=== PATIENT | female | born 1995 ===

== ENCOUNTER 2018-01-03 13:21 | Emergency (ER) | payer OTHER ==
[2018-01-03 13:50] VITALS: BP 113/74; PULSE 75; RESP 18; TEMP 98; O2SAT 99
--- NOTE | 2018-01-03 14:46 | ED PDOC ---
HPI: Skin/Bite Injury Time Seen by Provider: 01/03/18 14:08 Chief Complaint (Nursing): Abnormal Skin Integrity Chief Complaint (Provider): painful lip piercing History Per: Patient Onset/Duration Of Symptoms: Persistent (xfew months), Worse Since (2 days ago) Current Symptoms Are (Timing): Still Present Additional Complaint(s): 22 year old female arrives to ED with a complaint of irritation to her left lower lip piercing for the past few months. 2 days ago, she noted swelling to the affected area. Patient states she tired several times to remove piercing herself but has not been able to. Denies any active drainage, fever or chills. PMD: None Past Medical History Reviewed: Historical Data, Nursing Documentation, Vital Signs Vital Signs: Last Vital Signs Temp 98 F 01/03/18 13:49 Pulse 75 01/03/18 13:49 Resp 18 01/03/18 13:49 BP 113/74 01/03/18 13:49 Pulse Ox 99 01/03/18 13:49 - Medical History PMH: No Chronic Diseases - Surgical History Surgical History: No Surg Hx - Family History Family History: States: No Known Family Hx - Living Arrangements Living Arrangements: With Family - Social History Current smoker - smoking cessation education provided: Yes Alcohol: Occasional Drugs: Denies - Immunization History Hx Tetanus Toxoid Vaccination: Yes - Allergies Allergies/Adverse Reactions: Allergies Allergy/AdvReac Type Severity Reaction Status Date / Time No Known Allergies Allergy Verified 01/03/18 13:49 Review of Systems ROS Statement: Except As Marked, All Systems Reviewed And Found Negative Constitutional: Negative for: Fever, Chills ENT: Positive for: Other (painful piercing to lower lip) Physical Exam - Reviewed Nursing Documentation Reviewed: Yes Vital Signs Reviewed: Yes - Physical Exam Appears: Positive for: Well, Non-toxic, No Acute Distress Skin: Positive for: Normal Color. Negative for: Rash Eye Exam: Positive for: Normal appearance ENT: Positive for: Other (piercing noted to left lower lip noted with (-) signs of infection or active bleeding) Neck: Positive for: Normal Extremity: Positive for: Normal ROM Neurologic/Psych: Positive for: Alert, Oriented, Gait (steady) - Laboratory Results Urine POC: Negative - ECG O2 Sat by Pulse Oximetry: 99 (RA) Pulse Ox Interpretation: Normal Medical Decision Making Medical Decision Making: Initial Impression: Painful piercing to lower lip x several months Initial Plan: * Foreign body removal - see procedure note Patient advised to ice and elevate affected area, take Motrin for pain as needed and follow-up with primary doctor. Scribe Attestation: Documented by Sugar Alvarado, acting as a scribe for Alyssa Torres PA-C. Provider Scribe Attestation: All medical record entries made by the Scribe were at my direction and personally dictated by me. I have reviewed the chart and agree that the record accurately reflects my personal performance of the history, physical exam, medical decision making, and the department course for this patient. I have also personally directed, reviewed, and agree with the discharge instructions and disposition. Disposition - Clinical Impression Clinical Impression: Foreign body (FB) in soft tissue - Patient ED Disposition Is Patient to be Admitted: No Counseled Patient/Family Regarding: Diagnosis, Need For Followup - Disposition Referrals: [facility] [Outside] Disposition: Routine/Home Disposition Time: 15:19 Condition: STABLE Additional Instructions: Ice affected area to reduce swelling. Motrin as needed for pain. Follow up as needed with clinic or primary care doctor. Instructions: Foreign Body in Skin Forms: [employer] (Nepali), [facility] ED School/Work Excuse PROCEDURES - Foreign Body Removal Consent Obtained: verbal consent Site: other (left lower lip) Description of foreign body: other (lip piercing) Sedation/Analgesia: none, other (3 cc 1% lidocaine injected locally) Technique: removal with forceps Confirmed by:: direct visualization Complications:: None Post-procedure exam: Awake, alert, Normal BP, Normal HR, Normal O2 sat Neurovascular: Other (N/V intact s/p procedure)
== END 2018-01-03 15:52 | disposition home or self-care (01) ==
LOC: H.ER 13:21
DX: T18.0XXA Foreign body in mouth, initial encounter (principal)

== ENCOUNTER 2018-04-19 01:20 | Emergency (ER) | payer SELFPAY ==
--- NOTE | 2018-04-19 03:26 | ED PDOC ---
HPI: Psych/Substance Abuse Time Seen by Provider: 04/19/18 01:46 Chief Complaint (Nursing): Anxiety Chief Complaint (Provider): Anxiety History Per: Patient History/Exam Limitations: no limitations Onset/Duration Of Symptoms: Hrs ([employer]) Additional Complaint(s): 23 y/o female with history of anxiety presents to the ED complaining of anxiety. Patient states she had an anxiety attack prior to arrival. Patient was feeling very anxious and she couldn't sleep. Denies chest pain, shortness of breath, SI or HI. She denies any alcohol abuse but admits that she does smoke marijuana. Past Medical History Reviewed: Historical Data, Nursing Documentation, Vital Signs Vital Signs: Last Vital Signs Temp 98.4 F 04/19/18 01:35 Pulse 87 04/19/18 01:35 Resp 16 04/19/18 01:35 BP 128/75 04/19/18 01:35 Pulse Ox 100 04/19/18 01:35 - Medical History PMH: Anxiety - Surgical History Surgical History: No Surg Hx - Family History Family History: States: Unknown Family Hx - Social History Alcohol: None Drugs: Cannabis - Immunization History Hx Tetanus Toxoid Vaccination: Yes - Allergies Allergies/Adverse Reactions: Allergies Allergy/AdvReac Type Severity Reaction Status Date / Time No Known Allergies Allergy Verified 01/03/18 13:49 Review of Systems ROS Statement: Except As Marked, All Systems Reviewed And Found Negative Psych: Positive for: Anxiety. Negative for: Suicidal ideation Physical Exam - Reviewed Nursing Documentation Reviewed: Yes Vital Signs Reviewed: Yes - Physical Exam Appears: Positive for: Well (Anxious), Non-toxic, No Acute Distress Head Exam: Positive for: ATRAUMATIC, NORMOCEPHALIC Skin: Positive for: Normal Color, Warm, Dry Eye Exam: Positive for: EOMI, Normal appearance, PERRL ENT: Positive for: Normal ENT Inspection Neck: Positive for: Normal, Painless ROM Cardiovascular/Chest: Positive for: Regular Rate, Rhythm. Negative for: Murmur Respiratory: Positive for: Normal Breath Sounds. Negative for: Respiratory Distress Gastrointestinal/Abdominal: Positive for: Normal Exam, Soft. Negative for: Tenderness Back: Positive for: Normal Inspection Extremity: Positive for: Normal ROM. Negative for: Pedal Edema, Deformity Neurologic/Psych: Positive for: Alert, Oriented, Mood/Affect (Anxious). Negative for: Motor/Sensory Deficits - ECG O2 Sat by Pulse Oximetry: 100 (RA) Pulse Ox Interpretation: Normal - Radiology Nexus Criteria: Focal Neuro Deficit - Progress Re-evaluation Time: 04:03 Condition: Re-examined, Improved Medical Decision Making Medical Decision Making: Time: 02:16 Initial Impression: anxiety Initial Plan: * Xanax * Crisis evaluation Scribe Attestation: Documented by Lorne Emerson acting as a scribe for Mercy Noonan MD Provider Scribe Attestation: All medical record entries made by the Scribe were at my direction and personally dictated by me. I have reviewed the chart and agree that the record accurately reflects my personal performance of the history, physical exam, medical decision making, and the department course for this patient. I have also personally directed, reviewed, and agree with the discharge instructions and disposition. Disposition - Clinical Impression Clinical Impression: Anxiety - Patient ED Disposition Is Patient to be Admitted: No Doctor Will See Patient In The: Office Counseled Patient/Family Regarding: Studies Performed, Diagnosis, Need For Followup - Disposition Referrals: [facility] [Outside] Disposition: Routine/Home Disposition Time: 04:03 Condition: GOOD Additional Instructions: PATRICIO MONK, thank you for letting us take care of you today. Your provider was Mercy Noonan MD and you were treated for POSS ANXIETY. The emergency medical care you received today was directed at your acute symptoms. If you were prescribed any medication, please fill it and take as directed. It may take several days for your symptoms to resolve. Return to the Emergency Department if your symptoms worsen, do not improve, or if you have any other problems. Please contact your doctor or call one of the physicians/clinics you have been referred to that are listed on the Patient Visit Information form that is included in your discharge packet. Bring any paperwork you were given at discharge with you along with any medications you are taking to your follow up visit. Our treatment cannot replace ongoing medical care by a primary care provider outside of the emergency department. Thank you for allowing the [facility] team to be part of your care today. If you had an X-Ray or CT scan: A Radiologist will review the ED reading if any change in treatment is needed we will contact you. If you had a blood, urine, or wound culture: It will take several days for the results, if any change in treatment is needed we will contact you. If you had an STI test: It will take 48 hours for the results. Please call after 1 week if you have not heard back. Instructions: Anxiety, Adult (DC)
[2018-04-19 04:20] VITALS: BP 107/63; PULSE 70; RESP 18; TEMP 97.7
[2018-04-19 05:50] VITALS: O2SAT 100
== END 2018-04-19 04:50 | disposition home or self-care (01) ==
LOC: H.ER 01:20
DX: F41.9 Anxiety disorder, unspecified (principal); F12.90 Cannabis use, unspecified, uncomplicated

== ENCOUNTER 2018-08-21 18:34 | Emergency (ER) | payer SELFPAY ==
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
[2018-08-21 21:18] LABS: BASO # 0.1 K/uL (0.0-0.2); BASO % 1.4 % (0.0-2.0); EOS # 0.1 K/uL (0.0-0.7); HEMOGLOBIN 14.1 g/dL (12.0-16.0); LYMPH # 1.5 K/uL (1.0-4.3); LYMPH % 25.3 % (20.0-40.0); MEAN CELL VOLUME 91.7 fl (81.0-99.0); MEAN CORPUSCULAR HEMOGLOBIN 30.5 pg (27.0-31.0); MEAN CORPUSCULAR HGB CONC 33.3 g/dL (33.0-37.0); MEAN PLATELET VOLUME 8.2 fl (7.2-11.7); MONO # 0.4 K/uL (0.0-0.8); MONO % 7.2 % (0.0-10.0); NEUT # 3.7 K/uL (1.8-7.0); NEUT % 64.1 % (50.0-75.0); NRBC % 0.1 % (0.0-0.0); RBC 4.61 Mil/uL (3.80-5.20); RED CELL DISTRIBUTION WIDTH 13.7 % (11.5-14.5); WHITE BLOOD COUNT 5.8 K/uL (4.8-10.8)
[2018-08-21 21:35] LABS: ALB/GLOB RATIO 1.5 (1.0-2.1); ALT/SGPT 82 U/L (9-52); AST/SGOT 108 U/L (14-36); BLOOD UREA NITROGEN 10 mg/dl (7-17); CALCIUM 9.9 mg/dL (8.4-10.2); GFR NON-AFRICAN AMERICAN > 60
[2018-08-21 22:09] LABS: SQUAMOUS EPITHIAL < 1 /hpf (0-5); URINE BILIRUBIN NEGATIVE (NEGATIVE); URINE BLOOD NEGATIVE (NEGATIVE); URINE CLARITY CLEAR (Clear); URINE COLOR COLORLESS (YELLOW); URINE GLUCOSE (UA) NEG (NEGATIVE); URINE LEUKOCYTE ESTERASE NEG Leu/uL (Negative); URINE PROTEIN NEGATIVE (NEGATIVE); URINE UROBILINOGEN 0.2-1.0 mg/dL (0.2-1.0)
[2018-08-21 22:34] LABS: BARBITURATES, UR NEGATIVE (NEGATIVE); BENZODIAZEPINES, UR NEGATIVE (NEGATIVE); OPIATES, UR NEGATIVE (NEGATIVE); PHENCYCLIDINE, UR NEGATIVE (NEGATIVE)
[2018-08-22 06:33] VITALS: BP 107/64; PULSE 98; RESP 17; TEMP 98; O2SAT 98
--- NOTE | 2018-08-22 10:55 | CT ---
Date of service: 08/21/2018 PROCEDURE: CT HEAD WITHOUT CONTRAST. HISTORY: fall, intoxication COMPARISON: None available. TECHNIQUE: Axial computed tomography images were obtained through the head/brain without intravenous contrast. Radiation dose: Total exam DLP = 888.21 mGy-cm. This CT exam was performed using one or more of the following dose reduction techniques: Automated exposure control, adjustment of the mA and/or kV according to patient size, and/or use of iterative reconstruction technique. FINDINGS: HEMORRHAGE: No intracranial hemorrhage. BRAIN: Normal torres-white matter differentiation and density are appreciated throughout the cerebrum and cerebellum with the brainstem appearing unremarkable as well. There is no mass effect. There is no suspicious extra-axial fluid collection and the midline brain anatomy appears diffusely unremarkable. VENTRICLES: Unremarkable. No hydrocephalus. CALVARIUM: No destructive bony lesion or displaced fracture identified including through the skullbase. PARANASAL SINUSES: Unremarkable as visualized. No significant inflammatory changes. MASTOID AIR CELLS: Unremarkable as visualized. No inflammatory changes. OTHER FINDINGS: None. IMPRESSION: Unremarkable unenhanced head CT. Concordant preliminary report from Lynnette, 08/21/2018, 10:48 p.m..
--- NOTE | 2018-08-22 15:20 | RAD ---
PROCEDURE: Left Hand Radiographs. HISTORY: Posttraumatic pain. COMPARISON: Left wrist reported separately TECHNIQUE: 3 views obtained. FINDINGS: BONES: Distal radial fracture identified. JOINTS: Normal. No osteoarthritic changes. SOFT TISSUES: Soft tissue swelling attests to the acuity of the fracture. 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 IMPRESSION: Acute fracture distal left radius with intra-articular component.
--- NOTE | 2018-08-22 15:20 | RAD ---
Date of service: 08/21/2018 PROCEDURE: Left Wrist Radiographs. HISTORY: pain COMPARISON: 08/21/2018. Left hand radiographs reported separately. TECHNIQUE: 4 views obtained. FINDINGS: BONES: Comminuted intra-articular fracture distal left radius. No adjacent scaphoid or lunate abnormalities. JOINTS: Normal. No dislocation. SOFT TISSUES: Soft tissue swelling attests to the acuity of the fracture. OTHER FINDINGS: None. IMPRESSION: Acute, comminuted intra-articular fracture distal left radius.
== END 2018-08-22 06:20 | disposition home or self-care (01) ==
LOC: H.ER 18:34
DX: F10.129 Alcohol abuse with intoxication, unspecified (principal); S52.572A Other intraarticular fracture of lower end of left radius, initial encounter for closed fracture; J45.909 Unspecified asthma, uncomplicated; W05.1XXA Fall from non-moving nonmotorized scooter, initial encounter
CPT/HCPCS: 70450; 73110; 73130; 80053; 81003; 81025; 85025; 99285; G0480